=== PATIENT | male | born 1980 | race Caucasian/White ===

== ENCOUNTER 2018-05-18 10:52 | Emergency (ER) | payer BC ==
[~2018-05-18] VITALS: Ht 175.3 cm; Wt 70.5 kg
[~2018-05-18 10:52] MED LIST: ADVIL200 MG PO; FISH OIL CONC1000 MG PO; GLUCOSAMINE & C1 CA1 PO; LORTAB 7.5/5001 TAB PO; MULTIVITAMIN1 CTB PO; NO HOME MEDICATIONS; PHENERGAN 25 TA25 MG PO; PHENERGAN25 MG RC; PREDNISONE 5MG5 MG PO; PREDNISONE20 MG PO; PROPECIA; PROTONIX 40MG T40 MG PO; PROVENTIL0.09 MG/A1 IH; SINGULAIR 110 MG/TAB PO; VALIUM 2MG T2 MG/TAB PO; VIT B-6100 MG PO; VITAMIN C500 MG PO; ZINC1 GRA; ZITHROMAX Z PA250 MG PO; ZYRTEC 10MG10 MG PO; [UNRECOGNIZED DRUG - REMARK]
[2018-05-18 10:55] VITALS: BP 136/80; PULSE 102; TEMP 98
== END 2018-05-18 11:37 | disposition home or self-care (01) ==
LOC: COL.ER 10:52
DX: S46.912A Strain of unspecified muscle, fascia and tendon at shoulder and upper arm level, left arm, initial encounter (principal); J45.909 Unspecified asthma, uncomplicated; W19.XXXA Unspecified fall, initial encounter; X50.0XXA Overexertion from strenuous movement or load, initial encounter; Y93.75 Activity, martial arts

== ENCOUNTER → 2019-03-30 | Outpatient (CLI) | payer BC | LOC: COL.RAD 09:00 | DX: R10.13 Epigastric pain (principal) ==

== ENCOUNTER → 2019-12-29 | Outpatient (CLI) | payer BC | LOC: ZCOL.LAB 15:20 | DX: R09.81 Nasal congestion (principal); R06.02 Shortness of breath; R05 Cough; Z20.828 Contact with and (suspected) exposure to other viral communicable diseases ==